=== PATIENT | female | born 1950 | race Hispanic/Latino ===

== ENCOUNTER → 2022-01-15 | Outpatient (CLI) | payer OTHER ==
[~2022-01-15] MED LIST: ASPI-1443 PO; CILO50TA PO; CLOP75TA14 PO; IOHEXOL 350 MG/ML 100ML INFUS..BTL IV ONE; LOSA100T58 PO; METO-408 PO; ROSU10TA28 PO
== END | disposition home or self-care (01) ==
LOC: RAH 08:41
PROVIDERS: ATTEND Internal Medicine Cardiovascular Disease
DX: I70.0 Atherosclerosis of aorta (principal); I71.40 Abdominal aortic aneurysm, without rupture, unspecified; I71.43 Infrarenal abdominal aortic aneurysm, without rupture; M47.815 Spondylosis without myelopathy or radiculopathy, thoracolumbar region
CPT/HCPCS: 74174; Q9967